=== PATIENT | female | born 1975 | race Caucasian/White ===

== ENCOUNTER 2024-07-10 08:47 | Observation (INO) ==
[2024-07-10 10:00] LABS: ABS Eosinophils 0.1 10^3/uL (0.0-0.5); ABS Lymphocytes 1.1 10^3/uL (1.0-4.8); ABS Monocytes 0.3 10^3/uL (0.0-0.9); Eosinophil % 1.6 %; Hematocrit 32.5 % (35-45); Hemoglobin 10.8 g/dL (11.5-14.3); Lymphocyte % 24.9 %; Mean Corpuscular Hemoglobin 28.9 pg (27-33); Mean Corpuscular Hgb Conc 33.3 g/dL (31-36); Mean Corpuscular Volume 86.8 fL (80-97); Mean Platelet Volume 6.5 fL (7.5-11.2); Nucleated Red Blood Cells % 0.1 %/100WBC (0.0-0.8); Platelet Count 473 10^3/uL (150-450); Red Blood Count 3.74 10^6/uL (3.63-4.92); Red Cell Distribution Width 14.4 % (12-17); White Blood Count 4.6 10^3/uL (3.8-11.8)
[2024-07-10 10:06] LABS: Activated Partial Thrombo Time 27.7 seconds (26.0-38.0); INR 0.98 (0.85-1.14)
[2024-07-10] MEDS ORDERED: oxyCODONE SR 10 mg TAB ONE (10:14)
[2024-07-10] MEDS ORDERED: Scopolamine 1 mg/72hr PATCH ONE (10:14)
[2024-07-10] MEDS ORDERED: Ondansetron 4 mg VIAL 2 MG/ML 2 ml VIAL ONE ×2 (10:14→14:42)
[2024-07-10 10:45] LABS: Blood Urea Nitrogen 9 mg/dL (6-24); CO2 Carbon Dioxide 24 mmol/L (22-32); Calcium 8.5 mg/dL (8.6-10.3); Chloride 107 mmol/L (101-111); Creatinine, Serum 0.78 mg/dL (0.51-0.95); Glucose 93 mg/dL (70-100); Sodium 136 mmol/L (135-145); eGFR CKD-EPI 93.1 (>60)
[2024-07-10 10:50] LABS: HCG Pregnancy < 0.60 mIU/mL
[2024-07-10] MEDS ORDERED: Nitro 2% OINT (Nitroglycerin) 1 INCH/PAK ONE (10:50)
[2024-07-10 10:58] LABS: Anion Gap 5 mmol/L (2-16); Potassium 3.7 mmol/L (3.5-5.0)
[2024-07-10] MEDS ORDERED: Clindamycin 900 MG/50 **NS BAG 900 MG/50 ML BAG ONE (11:36)
[2024-07-10] MEDS ORDERED: VERAPAMIL 2.5 MG/ML 2 ML VIAL ** 5 mg/2 ml ONE (11:57)
[2024-07-10] MEDS ORDERED: Heparin 1,000 UNIT/ML 10 ml (10,000 UNITS) CATHLAB/DIALYSIS ONE (11:57)
[2024-07-10] MEDS ORDERED: Heparin 2 UNITS/ML 1000 mls 1,000 ML IV ONE (11:58)
[2024-07-10] MEDS ORDERED: Iohexol 350 (CONTRAST) 100 ML PAK IV ONE (11:58)
[2024-07-10] MEDS ORDERED: Lidocaine 1% VIAL 10 MG/ML 30 ML VIAL ONE (11:58)
[2024-07-10] MEDS ORDERED: nitroGLYCERIN DRIP 25,000 MCG/250 ML BTL ONE (11:58)
[2024-07-10] MEDS ORDERED: Midazolam 5 mg/5 ml VIAL 1 mg/ml 5 ml VIAL (5 mg) ONE (12:18)
[2024-07-10] MEDS ORDERED: fentaNYL 100 mcg/2 ml 50 MCG/ML VIAL ONE (12:18)
[2024-07-10] MEDS ORDERED: Prochlorperazine 5 mg/ml 2 ml VIAL (10 mg) ONE (12:20)
[2024-07-10] MEDS ORDERED: Flumazenil 0.5 mg/5 ml 0.1 MG/ML 5 ml VIAL IV PRN (12:29)
[2024-07-10] MEDS ORDERED: Naloxone 0.4 mg VIAL 0.4 mg/ml 1 ml VIAL IV PUSH PRN (12:29)
[2024-07-10] MEDS ORDERED: HYDROmorphone 1 MG/1 ML SYRINGE ONE ×3 (14:13→15:46)
[2024-07-10] MEDS: Ondansetron 4 mg VIAL 2 MG/ML 2 ml VIAL IV SCH (14:45)
[2024-07-10] MEDS ORDERED: HYDROmorphone 0.5 MG/0.5 ML SYRINGE IV PRN (15:27)
[2024-07-10] MEDS: HYDROmorphone 1 MG/1 ML SYRINGE IV SLOW PU PRN (15:50)
[2024-07-11] MEDS ORDERED: HYDROcodone/ACETAMIN 5/325 mg TAB PO PRN (09:31)
[2024-07-11] MEDS: Ketorolac 10 mg TAB (NF) PO SCH (13:10)
[2024-07-11] MEDS: oxyCODONE/Acetamin 5/325 mg TAB PO PRN (13:38)
== END 2024-07-11 17:00 | disposition home or self-care (01) ==
LOC: CHICATH 08:47 → SSU 08:47
PROVIDERS: ADMIT Radiology Diagnostic Radiology; ATTEND Internal Medicine
PROC: ANG.UFE (2024-07-10 11:00)